=== PATIENT | male | born 1945 | race Hispanic/Latino ===

== ENCOUNTER → 2018-03-15 | Outpatient (CLI) | payer OTHER | END | disposition home or self-care (01) | LOC: SHCH 10:16 | PROVIDERS: ATTEND Internal Medicine Cardiovascular Disease | DX: I87.2 Venous insufficiency (chronic) (peripheral) (principal) | CPT/HCPCS: 93970 ==

== ENCOUNTER 2019-09-25 08:46 | Day surgery (SDC) | payer OTHER ==
[~2019-09-25] VITALS: Ht 167.6 cm; Wt 59.0 kg
[2019-09-25] VITALS (7 sets, daily range): BP systolic 104–184; BP diastolic 51–104
[~2019-09-25 08:46] MED LIST: SODIUM CHLORIDE 0.9% 1000ML 1,000 ML IV ONE
[2019-09-25] MEDS ORDERED: DOCU-272 PO (10:18)
[2019-09-25] MEDS ORDERED: KRISTALOSE (10:18)
[2019-09-25] MEDS ORDERED: PROPOFOL 10 MG/ML 20ML VIAL IV ONE (10:37)
== END 2019-09-25 11:27 | disposition home or self-care (01) ==
LOC: DAH 08:46
PROVIDERS: ATTEND Internal Medicine
DX: Z12.11 Encounter for screening for malignant neoplasm of colon (principal); K21.0 Gastro-esophageal reflux disease with esophagitis; K22.10 Ulcer of esophagus without bleeding; K31.89 Other diseases of stomach and duodenum; R63.4 Abnormal weight loss; I10 Essential (primary) hypertension; R93.2 Abnormal findings on diagnostic imaging of liver and biliary tract; E87.1 Hypo-osmolality and hyponatremia; R68.81 Early satiety; Z79.899 Other long term (current) drug therapy
CPT/HCPCS: 43239; 45378; A4215; A4221; A4222; A4223; A4606; A4620; A4663; J2704; J7030

== ENCOUNTER 2019-09-26 06:09 | Day surgery (SDC) | payer OTHER ==
[~2019-09-26] VITALS: Ht 167.6 cm; Wt 59.0 kg
[2019-09-26] VITALS (7 sets, daily range): BP systolic 99–169; BP diastolic 64–99
[~2019-09-26 06:09] MED LIST changes: +DOCU-272 PO; +KRISTALOSE; -SODIUM CHLORIDE 0.9% 1000ML 1,000 ML IV ONE
[2019-09-26] MEDS ORDERED: PROPOFOL 10 MG/ML 20ML VIAL IV ONE ×2 (06:59)
[2019-09-26] MEDS ORDERED: SODIUM CHLORIDE 0.9% 1000ML 1,000 ML IV ONE (07:18)
== END 2019-09-26 08:30 ==
LOC: ENDO 06:09 → DAH 06:09 → ENDO 08:30
PROVIDERS: ATTEND Internal Medicine
DX: K59.00 Constipation, unspecified (principal); D12.0 Benign neoplasm of cecum; K57.30 Diverticulosis of large intestine without perforation or abscess without bleeding; I10 Essential (primary) hypertension; E87.1 Hypo-osmolality and hyponatremia; R68.81 Early satiety; R53.1 Weakness; R93.2 Abnormal findings on diagnostic imaging of liver and biliary tract
CPT/HCPCS: 45385; 88305; J2704 ×2; J7030

== ENCOUNTER → 2019-11-29 | Outpatient (CLI) | payer OTHER | END | disposition home or self-care (01) | LOC: SHCH 10:29 | PROVIDERS: ATTEND Internal Medicine Cardiovascular Disease | DX: I87.2 Venous insufficiency (chronic) (peripheral) (principal); R06.09 Other forms of dyspnea | CPT/HCPCS: 93306; 93356; 93970 ==